=== PATIENT | female | born 1990 | race Caucasian/White ===

== ENCOUNTER 2017-11-05 06:35 | Inpatient (IN) | payer OTHER ==
[2017-11-05] MEDS ORDERED: LACTATED RINGER'S 1,000 ML IV (07:18)
[2017-11-05] MEDS ORDERED: BUTORPHANOL 2 MG INJ IV (07:30)
[2017-11-05] MEDS ORDERED: CARBOPROST 250 MCG INJ IM (07:30)
[2017-11-05] MEDS ORDERED: LIDOCAINE 1% (MPF) 30 ML INJ INJ (07:30)
[2017-11-05] MEDS ORDERED: MISOPROSTOL 200 MCG TAB PR (07:30)
[2017-11-05] MEDS ORDERED: BUTORPHANOL 1 MG INJ IV (07:30)
[2017-11-05] MEDS ORDERED: OXYTOCIN 30 UNITS/LR 500 ML IV ×2 (07:30)
[2017-11-05] MEDS ORDERED: IBUPROFEN 600 MG TAB PO (07:30)
[2017-11-05] MEDS ORDERED: METHYLERGONOVINE 0.2 MG INJ IM (07:30)
[2017-11-05] MEDS: LACTATED RINGER'S 1,000 ML IV* ×4 (08:13→21:39)
[2017-11-05 08:51] LABS: ADD MAN DIFF? NO
[2017-11-05 08:54] LABS: WHITE BLOOD COUNT 11.1 10^3/ul (4.8-10.8)
[2017-11-05 08:54] LABS: BASOPHILS % 0.2 % (0.0-2.0); EOSINOPHILS # 0.1 10^3/ul (0.0-0.5); EOSINOPHILS % 1.2 % (0.0-7.0); HEMATOCRIT 36.7 % (37.0-47.0); HEMOGLOBIN 12.4 g/dl (12.0-16.0); LYMPHOCYTES % 18.1 % (15.0-51.0); MEAN CORPUSCULAR HEMOGLOBIN 24.7 pg (29.0-33.0); MEAN CORPUSCULAR HGB CONC 33.8 g/dl (32.0-37.0); MEAN PLATELET VOLUME 10.1 fl (7.4-10.4); MONOCYTE # 0.8 10^3/ul (0.3-0.9); NEUTROPHIL # 8.1 10^3/ul (1.6-7.5); NEUTROPHILS % 72.9 % (39.0-77.0); PLATELET COUNT 247 10^3/UL (140-415); RED BLOOD COUNT 5.03 10^6/ul (4.20-5.40); RED CELL DISTRIBUTION WIDTH 14.2 % (11.5-14.5)
[2017-11-05 09:14] LABS: INR 0.85; PROTIME 11.7 Sec (11.9-14.9); PT RATIO 0.9
[2017-11-05 09:15] LABS: PARTIAL THROMBOPLASTIN TIME 26.5 Sec (25.0-35.0)
[2017-11-05] MEDS: AMPICILLIN 2 GM/NS (PMX) 100 ML IV (10:17)
[2017-11-05 12:38] LABS: HEPATITIS B SURFACE ANTIGEN NEGATIVE (NEGATIVE)
[2017-11-05] MEDS: AMPICILLIN 1 GM/NS (PMX) 50 ML IV ×4 (14:12→22:59)
[2017-11-05] MEDS: OXYTOCIN 30 UNITS/LR 500 ML IV (14:20)
[2017-11-05 15:06] LABS: RAPID PLASMA REAGIN NONREACTIVE (NR)
[2017-11-05] MEDS ORDERED: FENTAnyl 2MCG/ML-ROPIV 0.2% 100 ML (21:27)
[2017-11-05] MEDS: FENTAnyl 2MCG/ML-ROPIV 0.2% 100 ML BAG EPI (22:19)
[2017-11-05] MEDS ORDERED: NALOXONE (0.4 MG/ML) INJ IV (22:30)
[2017-11-05] MEDS ORDERED: ONDANSETRON 4 MG INJ IV (22:30)
[2017-11-05] MEDS ORDERED: DIPHENHYDRAMINE 50 MG INJ IV (22:30)
[2017-11-06] MEDS: AMPICILLIN 1 GM/NS (PMX) 50 ML IV ×3 (03:50→11:30)
[2017-11-06] MEDS: LACTATED RINGER'S 1,000 ML IV* ×2 (05:46→17:24)
[2017-11-06] MEDS: FENTAnyl 2MCG/ML-ROPIV 0.2% 100 ML BAG EPI (07:08)
[2017-11-06] MEDS ORDERED: DIPHENHYDRAMINE 50 MG INJ IV (08:30)
[2017-11-06] MEDS ORDERED: KETOROLAC 30 MG INJ IV (08:30)
[2017-11-06] MEDS ORDERED: morphine 2 MG INJ IV (08:30)
[2017-11-06] MEDS ORDERED: NALOXONE (0.4 MG/ML) INJ IV (08:30)
[2017-11-06] MEDS ORDERED: ONDANSETRON 4 MG INJ IV (08:30)
[2017-11-06] MEDS: CEFAZOLIN 2 GM/50 ML (PMX) 50 ML IV (10:15)
[2017-11-06] MEDS: ACETAMINOPHEN 325 MG TAB PO (11:27)
[2017-11-06] MEDS: ACETAMINOPHEN 650 MG SUPP PR (12:15)
[2017-11-06 12:18] LABS: AADO2 Cord Arterial 72.7 mmHg; Arterial Cord Blood pCO2 50.2 mmHG (25-50); CBA Base Excess -5.9 mmol/L; CBA COHb 1.2 %; CBA Oxygen Sat 38.2 mmHG; CBA Total Hemglobin 17.4 g/dl; Cord Blood Arterial pO2 16.9 mmHG (15.0-45.0); Fraction OxyHgb Cord Arterial 37.1 %; MODE ROOM AIR; MetHgb Cord Arterial 1.7 %; Sample Type CBA; Site CORD
[2017-11-06 12:20] LABS: CBV Base Excess -5.4 mmol/L; CBV COHb 1.2 %; CBV Total Hemglobin 17.4 g/dl; Cord Blood Venous pO2 18.5 mmHG (15.0-45.0); Fraction OxyHgb Cord Venous 37.9 %; MODE ROOM AIR; MetHgb Cord Venous 1.7 %; Sample Type CBV; Site CORD
[2017-11-06 12:36] LABS: ADD UMIC YES; UR ASCORBIC ACID NEGATIVE (NEGATIVE); UR BACTERIA FEW /HPF (NONE SEEN); UR BILIRUBIN (Dip) NEGATIVE (NEGATIVE); UR BLOOD (Dip) 2+ mg/dL (NEGATIVE); UR CLARITY CLEAR (CLEAR); UR COLOR YELLOW (YELLOW); UR GLUCOSE (Dip) NEGATIVE (NEGATIVE); UR KETONES (Dip) 2+ mg/dL (NEGATIVE); UR LEUKOCYTE ESTERASE (Dip) NEGATIVE Leu/ul (NEGATIVE); UR NITRITE (Dip) NEGATIVE (NEGATIVE); UR RBC 48 /HPF (0-5); UR SPECIFIC GRAVITY (Dip) 1.009 (1.003-1.030); UR TOTAL PROTEIN (Dip) NEGATIVE (NEGATIVE); UR UROBILINOGEN (Dip) NEGATIVE (NEGATIVE); UR WBC 1 /HPF (0-5)
[2017-11-06] MEDS: OXYTOCIN 30 UNITS/LR 500 ML IV (12:37)
[2017-11-06 13:23] LABS: ADD MAN DIFF? NO
[2017-11-06 13:26] LABS: BASOPHILS % 0.1 % (0.0-2.0); HEMATOCRIT 34.1 % (37.0-47.0); HEMOGLOBIN 11.6 g/dl (12.0-16.0); LYMPHOCYTES # 0.7 10^3/ul (0.8-2.9); MEAN CORPUSCULAR HEMOGLOBIN 24.6 pg (29.0-33.0); MEAN CORPUSCULAR VOLUME 72.4 fl (82.0-101.0); MEAN PLATELET VOLUME 9.9 fl (7.4-10.4); MONOCYTE # 0.3 10^3/ul (0.3-0.9); MONOCYTES % 1.6 % (0.0-11.0); NEUTROPHIL # 15.1 10^3/ul (1.6-7.5); NEUTROPHILS % 93.8 % (39.0-77.0); PLATELET COUNT 200 10^3/UL (140-415); RED BLOOD COUNT 4.71 10^6/ul (4.20-5.40); RED CELL DISTRIBUTION WIDTH 14.1 % (11.5-14.5)
[2017-11-06 13:26] LABS: WHITE BLOOD COUNT 16.1 10^3/ul (4.8-10.8)
[2017-11-06] MEDS: PIPER-TAZO 3.375 GM IV (PMX) 100 ML IVPB ×2 (17:23→23:41)
[2017-11-06] MEDS: IBUPROFEN 600 MG TAB PO ×2 (17:23→23:41)
[2017-11-06] MEDS: WITCH HAZEL/GLYCERIN PAD PR (17:24)
[2017-11-06] MEDS: LANOLIN 7 GM TUBE TOP (17:24)
[2017-11-06] MEDS ORDERED: BENZOCAINE 20% 56 ML SPRAY TOP (17:30)
[2017-11-07] MEDS: IBUPROFEN 600 MG TAB PO ×4 (05:24→23:33)
[2017-11-07] MEDS: PIPER-TAZO 3.375 GM IV (PMX) 100 ML IVPB ×3 (05:24→18:53)
[2017-11-07] MEDS: LACTATED RINGER'S 1,000 ML IV* ×2 (07:30→15:30)
[2017-11-07 08:54] LABS: WHITE BLOOD COUNT 17.8 10^3/ul (4.8-10.8)
[2017-11-07 08:54] LABS: ABNORMAL IP MESSAGE 1; ADD MAN DIFF? NO; BASOPHILS % 0.1 % (0.0-2.0); HEMATOCRIT 32.2 % (37.0-47.0); HEMOGLOBIN 10.8 g/dl (12.0-16.0); LYMPHOCYTES # 0.4 10^3/ul (0.8-2.9); LYMPHOCYTES % 2.1 % (15.0-51.0); MEAN CORPUSCULAR HEMOGLOBIN 24.1 pg (29.0-33.0); MEAN CORPUSCULAR HGB CONC 33.5 g/dl (32.0-37.0); MEAN CORPUSCULAR VOLUME 71.7 fl (82.0-101.0); MEAN PLATELET VOLUME 10.1 fl (7.4-10.4); MONOCYTE # 0.4 10^3/ul (0.3-0.9); NEUTROPHIL # 16.9 10^3/ul (1.6-7.5); NEUTROPHILS % 94.8 % (39.0-77.0); PLATELET COUNT 166 10^3/UL (140-415); RED BLOOD COUNT 4.49 10^6/ul (4.20-5.40); RED CELL DISTRIBUTION WIDTH 14.4 % (11.5-14.5)
[2017-11-07 09:15] LABS: POSITIVE DIFF @See below
[2017-11-08] MEDS: IBUPROFEN 600 MG TAB PO ×2 (05:33→12:00)
[2017-11-08 09:24] LABS: ADD MAN DIFF? NO
[2017-11-08 09:38] LABS: WHITE BLOOD COUNT 10.3 10^3/ul (4.8-10.8)
[2017-11-08 09:38] LABS: BASOPHILS % 0.2 % (0.0-2.0); EOSINOPHILS # 0.1 10^3/ul (0.0-0.5); EOSINOPHILS % 0.8 % (0.0-7.0); HEMATOCRIT 30.9 % (37.0-47.0); HEMOGLOBIN 10.3 g/dl (12.0-16.0); LYMPHOCYTES # 1.2 10^3/ul (0.8-2.9); LYMPHOCYTES % 11.9 % (15.0-51.0); MEAN CORPUSCULAR HEMOGLOBIN 24.1 pg (29.0-33.0); MEAN CORPUSCULAR HGB CONC 33.3 g/dl (32.0-37.0); MEAN CORPUSCULAR VOLUME 72.4 fl (82.0-101.0); MEAN PLATELET VOLUME 10.4 fl (7.4-10.4); MONOCYTE # 0.5 10^3/ul (0.3-0.9); MONOCYTES % 4.6 % (0.0-11.0); NEUTROPHIL # 8.4 10^3/ul (1.6-7.5); NEUTROPHILS % 81.6 % (39.0-77.0); PLATELET COUNT 176 10^3/UL (140-415); RED BLOOD COUNT 4.27 10^6/ul (4.20-5.40); RED CELL DISTRIBUTION WIDTH 14.5 % (11.5-14.5)
[2017-11-08] MEDS: LACTATED RINGER'S 1,000 ML IV* ×3 (12:41)
== END 2017-11-08 14:15 | disposition home or self-care (01) | DRG 774 ==
LOC: OBT 06:35 → L-D 06:35 → PP1 11-06 14:52 → L-D 06:35 → OBT 07:08 → L-D 07:08
PROVIDERS: Obstetrics & Gynecology
PROC: 10E0XZZ Delivery of Products of Conception, External Approach (ICD-10-PCS; principal; 2017-11-06)
PROC: 0HQ9XZZ Repair Perineum Skin, External Approach (ICD-10-PCS; 2017-11-06)
DX: O42.02 Full-term premature rupture of membranes, onset of labor within 24 hours of rupture (principal); O75.2 Pyrexia during labor, not elsewhere classified; O70.0 First degree perineal laceration during delivery; O86.4 Pyrexia of unknown origin following delivery; O69.81X0 Labor and delivery complicated by cord around neck, without compression, not applicable or unspecified; Z3A.40 40 weeks gestation of pregnancy; Z37.0 Single live birth
CPT/HCPCS: 36415; 36600; 62319; 76815; 76818; 81001; 82803; 85025; 85610; 85730; 86592; 86900; 86901; 87040; 87340; 88307; 99464